=== PATIENT | female | born 1990 | race African-American/Black ===

== ENCOUNTER 2020-08-14 09:22 | Emergency (ER) | payer OTHER ==
[2020-08-14 09:33] VITALS: BP 165/109; PULSE 78; TEMP 98.5; BMI 48.5
[2020-08-14] MEDS ORDERED: diphenhydrAMINE HCL 25 MG CAPSULE (FP) PO ONE ×4 (09:44→09:53)
[2020-08-14] MEDS ORDERED: FAMOTIDINE 20 MG/50 ML IVPB 20 MG/50 ML MG IVPB ONE ×2 (09:44→09:50)
[2020-08-14] MEDS ORDERED: methylPREDNISolone NA SUCC 125 MG/2 ML VIAL IVPB ONE (09:46)
[2020-08-14] MEDS ORDERED: methylPREDNISolone NA SUCC 125 MG/2 ML VIAL ONE (09:49)
[2020-08-14] MEDS ORDERED: AZITHROMYCIN 500 MG TABLET PO ONE (09:59)
[2020-08-14] MEDS ORDERED: metroNIDAZOLE 250 MG TABLET PO ONE (09:59)
[2020-08-14] MEDS ORDERED: AZITHROMYCIN 250 MG TABLET ONE (10:11)
[2020-08-14] MEDS ORDERED: cefTRIAXone SODIUM 1 GM VIAL ONE (10:12)
[2020-08-14] MEDS ORDERED: HYDROCHLOROTHIAZIDE 25 MG TABLET (FP) PO ONE (11:15)
[2020-08-14] MEDS ORDERED: HYDROCHLOROTHIAZIDE 25 MG TABLET (FP) ONE (11:17)
[2020-08-14] MEDS ORDERED: ONDANSETRON *ODT* 4 MG TABLET SL ONE (11:22)
[2020-08-14] MEDS ORDERED: ONDANSETRON *ODT* 4 MG TABLET ONE (11:23)
== END 2020-08-14 11:45 | disposition home or self-care (01) ==
LOC: JER 09:22
PROC: 3E02329 Introduction of Other Anti-infective into Muscle, Percutaneous Approach (ICD-10-PCS; principal; 2020-08-14)
PROC: 3E033GC Introduction of Other Therapeutic Substance into Peripheral Vein, Percutaneous Approach (ICD-10-PCS; 2020-08-14)
PROC: 3E033GC Introduction of Other Therapeutic Substance into Peripheral Vein, Percutaneous Approach (ICD-10-PCS; 2020-08-14)
DX: T78.40XA Allergy, unspecified, initial encounter (principal)
CPT/HCPCS: 36415; 87491; 87591; 99284-25; Q0162